=== PATIENT | male | born 1990 | race African-American/Black ===

== ENCOUNTER 2021-09-08 21:17 | Emergency (ER) | payer MEDICAID ==
[~2021-09-08] VITALS: Ht 182.9 cm; Wt 80.0 kg
[2021-09-08 21:25] VITALS: BP 144/71
== END 2021-09-08 22:25 | disposition left against medical advice (07) ==
LOC: ER 21:17
DX: Z53.21 Procedure and treatment not carried out due to patient leaving prior to being seen by health care provider (principal); J45.909 Unspecified asthma, uncomplicated